=== PATIENT | female | born 1970 | race Caucasian/White ===

== ENCOUNTER 2017-12-10 10:10 | Day surgery (SDC) | payer OTHER ==
[2017-12-10] MEDS ORDERED: BUPIVACAINE HCL 0.5%/EPI 1:200000 INJ 1.8 ML CARTRIDGE ONE (11:51)
[2017-12-10] MEDS ORDERED: FENTANYL CITRATE INJ/PF 100 MCG/2 ML AMPUL ONE ×2 (11:58→11:59)
[2017-12-10] MEDS ORDERED: MIDAZOLAM 2 MG/2 ML INJ ONE (11:58)
[2017-12-10] MEDS ORDERED: PROPOFOL INJ 200 MG/20 ML VIAL IV ONE (11:59)
[2017-12-10] MEDS ORDERED: DEXAMETHASONE SOD PHOS INJ 10 MG/1 ML VIAL ONE (11:59)
[2017-12-10] MEDS ORDERED: FAMOTIDINE INJ/PF 20 MG/2 ML SDV IV ONE (11:59)
[2017-12-10] MEDS ORDERED: ONDANSETRON HCL INJ/PF 4 MG/2 ML SDV ONE (11:59)
[2017-12-10] MEDS ORDERED: LIDOCAINE 2% INJ-PF (20 MG/ML) 10 ML AMPUL ONE (11:59)
[2017-12-10] MEDS ORDERED: GLYCOPYRROLATE INJ 0.4 MG/2 ML VIAL ONE (12:00)
[2017-12-10] MEDS ORDERED: SUCCINYLCHOLINE CHLORIDE INJ 200 MG/10 ML VIAL ONE (12:00)
[2017-12-10] MEDS ORDERED: TOBRAMYCIN SULFATE/DEXAMETH OPH OINTMENT 3.5 GM ONE (12:41)
[2017-12-10] MEDS ORDERED: PROMETHAZINE HCL INJ 25 MG/1 ML VIAL ONE (16:49)
--- NOTE | 2017-12-12 23:55 | [facility] OPERATIVE REPORT E ---
[facility] Operative Report NAME: SHILA BERGMAN AGE: 47Y DATE OF SURGERY: 12/12/2017 ROOM: PREOPERATIVE DIAGNOSIS: RIGHT FACIAL MASS/LIPOMA. POSTOPERATIVE DIAGNOSIS: RIGHT FACIAL MASS/LIPOMA. OPERATION: 1. ENDOSCOPIC REMOVAL OF RIGHT FACIAL MASS. 2. NONINVASIVE (NIM) FACIAL NERVE MONITORING. SURGEON: NIKI LING D.O. ANESTHESIA: General endotracheal. ANESTHESIA STAFF: Heike Renteria C.R.N.A. ESTIMATED BLOOD LOSS: 10 mL. FLUIDS: 1300 mL. COMPLICATIONS: None. DRAINS: None. SPONGE COUNT: Verified. NEEDLE COUNT: Verified. MATERIALS FORWARDED SPECIMEN: Lipoma that measured greater than 3 x 2 cm in dimension. IMPLANTS: FlexHD 2 x 4 cm; expiration date June 24, 2020; item number [id number], serial number [id number]. FINDINGS: 1. Right facial/cheek/parotid area deformity/fullness. 2. Lipoma that measured greater than 3 x 2 cm in dimension. 3. Normal facial nerve function was noted bilateral. 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 The patient had been referred for and she complained of a right facial mass that was increasing in size over the months/years. The patient denied pain in this area. There was normal facial nerve function. There was no numbness or tingling in this area. The patient expressed concern and a desire to have the right facial mass removed. On CT with contrast and MRI imaging, the entity appeared consistent with a lipoma. Approaches for mass removal were discussed in detail with the patient. Recommendation and plan was for a minimally-invasive preauricular approach using endoscopic assistance and facial nerve monitoring. The patient voiced an understanding and desire to proceed. The procedure and all of its risks and complications were all discussed in detail with the patient. She voiced an understanding of the described surgical plan, agreed to proceed, and consent was obtained. PROCEDURE: The patient was taken to the main operating room and placed on the operating room table in the supine position. Appropriate monitors were placed. Using mask and IV access, general anesthesia was induced. The patient was positioned and prepped for right facial surgery. The noninvasive nerve monitoring (NIM) was set up and tested appropriately before beginning the case. The patient then underwent a planned surgical incision marking followed by infiltration with local anesthetic with epinephrine. The patient was then prepped and draped in a sterile fashion for right facial surgery. A right preauricular incision was made at the previously marked location. This was carried down to the level of the SMAS. The skin soft tissue envelope was elevated without difficulty. The area of the right facial mass had been marked as well preoperatively in the preop holding area. The mass in this area was identified and mobilized and appeared consistent with lipoma. This lipoma was removed without difficulty with use of the endoscopic equipment for assistance during dissection. Bovie electrocautery was used to provide adequate hemostasis. The area was thoroughly irrigated with normal saline and adequate hemostasis was noted. There was wide local dissection performed as well to release tissues to fill the area where the lipoma had been removed. Once complete, the SMAS was draped and sutured fixed to assist in recontouring the area. There was a 2 x 4 cm piece of FlexHD that was placed as a contour graft and to assist as a buffering layer during the healing process. One piece of Gelfoam was placed as well to stabilize the FlexHD graft. At this point, the skin soft tissue envelope was re-draped and the incision site was closed in a layered fashion with Monocryl suture. Monocryl suture was also used to reapproximate the skin margins in a continuous deep dermal fashion. The skin was next cleaned and dried followed by placement of Mastisol, Steri-Strips, and a fluffs pressure dressing with a facelift dressing overlay. The patient was hen returned to the anesthesia staff after the facial nerve monitoring leads were removed. The patient was allowed to emerge from general anesthetic and was extubated in the main operating room without difficulty. The patient was then transported to the post anesthesia recovery unit in stable condition. There were no complications. DICTATING PHYSICIAN: NIKI LING D.O. [id number] PHY#: [id number] ID: [id number] JOB#: [id number] ACCT: [id number] cc:NIKI LING D.O. >
== END 2017-12-10 17:28 | disposition home or self-care (01) ==
LOC: SC 10:10
PROVIDERS: ATTEND Otolaryngology
DX: D17.0 Benign lipomatous neoplasm of skin and subcutaneous tissue of head, face and neck (principal); M19.90 Unspecified osteoarthritis, unspecified site; Z79.899 Other long term (current) drug therapy; Z88.0 Allergy status to penicillin
CPT/HCPCS: 88304 ×2; 21014; J2250; J3490 ×3; J3010; J2550; J0330; J2405; J2704; S0028; J1100; 300